=== PATIENT | male | born 1965 | race Two or more races ===

== ENCOUNTER 2017-02-25 08:03 | Inpatient (IN) | payer MEDICAID ==
[~2017-02-25] VITALS: Ht 165.1 cm; Wt 87.3 kg
[~2017-02-25 08:03] MED LIST: ASPI81TA27 PO; ATOR40TA52 PO; CARV3.1240 PO; CLOP75TA28 PO; DULO20CA PO; ETOD400T PO; GABA-497 PO; INSDRIP SC; INSLANTI SC; METF-370 PO; TRAZ50TA2 PO
[2017-02-25] MEDS ORDERED: LIDOCAINE 2%HCL (LOCAL ANESTH.) INJ 20ML MDV ONE (08:24)
[2017-02-25] MEDS ORDERED: IODIXANOL 320MG/ML 100ML BTL IV ONE (08:25)
[2017-02-25] MEDS ORDERED: VERAPAMIL 2.5MG/ML INJ 2ML VIAL IV ONE (08:27)
[2017-02-25] MEDS ORDERED: SODIUM CHL 0.9% 50 ML ONE ×2 (08:27→08:28)
[2017-02-25] MEDS ORDERED: MIDAZOLAM HCL 1MG/1ML-2 ML VIAL ONE (08:27)
[2017-02-25] MEDS ORDERED: fentaNYL CITRATE 100 MCG/2 ML VL ONE (08:27)
[2017-02-25] MEDS ORDERED: ANGIOMAX 250 MG VIAL IV ONE (08:27)
[2017-02-25] MEDS ORDERED: NITROGLYCERIN 5MG/ML 10ML VIAL IV ONE (08:28)
[2017-02-25] MEDS ORDERED: IOHEXOL 350 MG/ML 100ML IJ ONE (09:33)
[2017-02-25] MEDS ORDERED: ASPirin 325 MG TAB ONE (09:39)
[2017-02-25] MEDS ORDERED: CLOPIDOGREL BISULFATE 75 MG TAB ONE (09:39)
[2017-02-25] MEDS ORDERED: NITROGLYCERIN 0.4 MG SL TAB SL PRN (10:15)
[2017-02-25] MEDS ORDERED: MORPHINE SULF INJ 2 MG/ML SYRINGE 1ML IV PRN (10:15)
[2017-02-25] MEDS ORDERED: DEXTROSE (50%) 50ML SYRG IV PRN (10:30)
[2017-02-25] MEDS: ACCU-CHEK COMFORT CURVE STRIP VI SCH ×3 (11:39→21:40)
[2017-02-25] MEDS: InsuLIN REG 1unit/0.01ml Soln (100units/ml) SC SCH ×2 (11:47→17:30)
[2017-02-25] MEDS ORDERED: InsuLIN REG 1unit/0.01ml Soln (100units/ml) ONE (12:31)
[2017-02-25 13:39] VITALS: BP 130/67
[2017-02-25 13:58] VITALS: BP 130/67
[2017-02-25] MEDS: GABAPENTIN 300 MG CAP PO SCH ×2 (14:03→21:40)
[2017-02-25 17:00] VITALS: BP 133/93
[2017-02-25] MEDS: CARVEDILOL 3.125 MG TAB PO SCH (21:40)
[2017-02-25] MEDS ORDERED: traZODone HCL 50 MG TAB PO SCH (22:00)
[2017-02-25] MEDS ORDERED: InsuLIN REG 1unit/0.01ml Soln (100units/ml) SC SCH (22:00)
[2017-02-25 22:51] VITALS: BP 132/79
[2017-02-26 05:40] VITALS: BP 102/64
[2017-02-26] MEDS: GABAPENTIN 300 MG CAP PO SCH (06:26)
[2017-02-26] MEDS: ACCU-CHEK COMFORT CURVE STRIP VI SCH (06:26)
[2017-02-26] MEDS: InsuLIN REG 1unit/0.01ml Soln (100units/ml) SC SCH (06:29)
[2017-02-26 08:30] VITALS: BP 102/69
[2017-02-26 09:14] VITALS: BP 102/69
[2017-02-26 09:43] VITALS: BP 102/69
[2017-02-26] MEDS ORDERED: ASPirin 81 mg TAB PO SCH (10:00)
[2017-02-26] MEDS ORDERED: ASPirin-EC 81 mg tab PO SCH (10:00)
[2017-02-26] MEDS ORDERED: CLOPIDOGREL BISULFATE 75 MG TAB PO SCH ×2 (10:00)
[2017-02-26] MEDS: CARVEDILOL 3.125 MG TAB PO SCH (10:08)
== END 2017-02-26 10:30 | disposition home or self-care (01) | DRG 175 ==
LOC: CATH 08:03 → TELE-EAST 08:04
PROVIDERS: ADMIT Internal Medicine; ATTEND Internal Medicine
PROC: 027034Z Dilation of Coronary Artery, One Artery with Drug-eluting Intraluminal Device, Percutaneous Approach (ICD-10-PCS; principal; 2017-02-25)
PROC: 02703Z6 Dilation of Coronary Artery, One Artery, Bifurcation, Percutaneous Approach (ICD-10-PCS; 2017-02-25)
PROC: 4A023N7 Measurement of Cardiac Sampling and Pressure, Left Heart, Percutaneous Approach (ICD-10-PCS; 2017-02-25)
PROC: B2111ZZ Fluoroscopy of Multiple Coronary Arteries using Low Osmolar Contrast (ICD-10-PCS; 2017-02-25)
DX: I25.10 Atherosclerotic heart disease of native coronary artery without angina pectoris (principal); I42.9 Cardiomyopathy, unspecified; E11.40 Type 2 diabetes mellitus with diabetic neuropathy, unspecified; I25.2 Old myocardial infarction; E78.5 Hyperlipidemia, unspecified; F32.9 Major depressive disorder, single episode, unspecified; I10 Essential (primary) hypertension; Z82.3 Family history of stroke; Z82.49 Family history of ischemic heart disease and other diseases of the circulatory system; Z83.3 Family history of diabetes mellitus; Z79.84 Long term (current) use of oral hypoglycemic drugs; Z79.82 Long term (current) use of aspirin; Z79.899 Other long term (current) drug therapy; Z95.5 Presence of coronary angioplasty implant and graft; Z87.891 Personal history of nicotine dependence
CPT/HCPCS: 36415; 82565; 82962; 84484; 92920; 92928; 93458; 99152; 99153; C1874; J1815; J2250; J3490; Q9967

== ENCOUNTER 2022-10-07 07:53 | Day surgery (SDC) | payer OTHER ==
[~2022-10-07] VITALS: Ht 165.1 cm; Wt 81.6 kg
[~2022-10-07 07:53] MED LIST changes: +ASPI-543 PO; -ASPI81TA27 PO; -ATOR40TA52 PO; -CARV3.1240 PO; +CITA-77 PO; -DULO20CA PO; +ERTU15TA PO; -ETOD400T PO; +FENO145T27 PO; +FERR325T24 PO; -GABA-497 PO; -INSDRIP SC; -INSLANTI SC; +INSU100I28 IJ; +MIDO2.5T3 PO; +PREG-108 PO; +RISP2TAB62 PO; +SEMA2INJ3 SC; +TAMS1CAP25 PO; -TRAZ50TA2 PO; +VALP1CAP4 PO
[2022-10-07] MEDS ORDERED: HEPARIN SODIUM (PORCINE) 5000 UNITS/ML 1ML VIAL ONE (09:11)
[2022-10-07] MEDS ORDERED: fentaNYL CITRATE 100 MCG/2 ML VL ONE (09:11)
[2022-10-07] MEDS ORDERED: VERAPAMIL 2.5MG/ML INJ 2ML VIAL IV ONE (09:11)
[2022-10-07] MEDS ORDERED: IODIXANOL 320MG/ML 100ML BTL IV ONE ×2 (09:12→09:27)
[2022-10-07] MEDS ORDERED: SODIUM CHL 0.9% 0 ML ONE (09:12)
[2022-10-07] MEDS ORDERED: ANGIOMAX 250 MG VIAL IV ONE (09:12)
[2022-10-07] MEDS ORDERED: MIDAZOLAM HCL 2MG/2ML 2ml VIAL (1mg/ml) ONE (09:12)
[2022-10-07] MEDS ORDERED: LIDOCAINE 2%HCL (LOCAL ANESTH.) INJ 20ML MDV ONE (09:12)
[2022-10-07 09:50] VITALS: BP 113/69
[2022-10-07 10:09] VITALS: BP 115/76
[2022-10-07 10:39] VITALS: BP 107/71
[2022-10-07 11:09] VITALS: BP 126/74
[2022-10-07 11:34] VITALS: BP 111/79
[2022-10-07 11:50] VITALS: BP 109/76
== END 2022-10-07 12:00 | disposition home or self-care (01) ==
LOC: CATH 07:53
PROVIDERS: ATTEND Internal Medicine
DX: I25.118 Atherosclerotic heart disease of native coronary artery with other forms of angina pectoris (principal); R94.39 Abnormal result of other cardiovascular function study
CPT/HCPCS: 76937; 93306; 93458; C1725; C1769; C1894; J1644; J2250; J3010; J7030; Q9967; 99152